=== PATIENT | male | born 1980 | race Caucasian/White ===

== ENCOUNTER 2020-03-06 11:38 | Outpatient (CLI) | payer SELFPAY ==
[2020-03-07 01:59] LABS: SARS-CoV-2 RNA PCR Negative
== END 2020-03-06 11:39 | disposition home or self-care (01) ==
LOC: CHSLAB 11:42
PROVIDERS: PCP Internal Medicine; Visit Provider Internal Medicine
DX: Z20.828 Contact with and (suspected) exposure to other viral communicable diseases (principal)
CPT/HCPCS: 87635; C9803; U0003

== ENCOUNTER 2020-03-13 18:20 | Emergency (ER) | payer SELFPAY ==
[2020-03-13 19:13] VITALS: BP 164/95; PULSE 89; RESP 16; TEMP 36.2; O2SAT 99
--- NOTE | 2020-03-13 19:39 | ED.GENADULT ---
HPI - General Adult General Chief complaint: Wound/Laceration Stated complaint: right hand lac Time Seen by Provider: 03/13/20 19:26 Source: patient Mode of arrival: ambulatory Limitations: no limitations History of Present Illness HPI narrative: Patient presents with chief complaint of laceration to the dorsal aspect of the second digit that he sustained as prior to arrival while dismantling a knife. he states he was able to stop bleeding with compression. He reports still having full range of motion and denying nallely tenderness. He states he is not UTD on tetanus. Related Data Allergies Allergy/AdvReac Type Severity Reaction Status Date / Time No Known Allergies Allergy Verified 03/13/20 19:16 Review of Systems Review of Systems: Narrative: CONSTITUTIONAL: Denies fever, chills, or sweats. EYES: Denies visual changes, redness, or discharge. ENT: Denies rhinorrhea, congestion, sore throat, or otalgia. CARDIOVASCULAR: Denies chest pain, palpitations, or edema. RESPIRATORY: Denies cough or dyspnea. GASTROINTESTINAL: Denies abdominal pain, nausea, vomiting, or diarrhea. GENITOURINARY: Denies dysuria or hematuria. SKIN: Reports laceration denies rash or itching. MUSCULOSKELETAL: Denies back pain, myalgia, or joint pain NEUROLOGIC: Denies headache, numbness, dizziness, or weakness. PSYCHIATRIC: Denies anxiety or depression. PMFSH Social History Social History Gender identity (if verbalized by the patient): Male Exam Narrative: Exam Narrative: GENERAL: Well-appearing, well-nourished, and in no acute distress. HEAD: Normocephalic, atraumatic. EYES: PERRLA and EOMI. NECK: Supple. No adenopathy or masses. No carotid bruits or JVD CHEST: Clear to auscultation. No respiratory distress. No wheezes rales or rhonchi HEART: Regular rate and rhythm. No murmur heard. Normal peripheral pulses. EXTREMITIES: Normal range of motion. No edema. SKIN: 2 cm laceration to the dorsal aspect of right second digit. No active bleeding non gaping. Patient denies nallely tenderness. Patient has full flexion and extension of the digit, no sign of tendon involvement. Warm, dry, no rash. NEURO: No focal deficits. Alert and oriented x3. PSYCH: Normal mood and affect. Course Vital Signs Vital signs: Vital Signs Temperature 97.2 F L 03/13/20 19:13 Pulse Rate 89 03/13/20 19:13 Respiratory Rate 16 03/13/20 19:13 Blood Pressure 164/95 H 03/13/20 19:13 Pulse Oximetry 99 03/13/20 19:13 Temperature 97.2 F L 03/13/20 19:13 Pulse Rate 89 03/13/20 19:13 Respiratory Rate 16 03/13/20 19:13 Blood Pressure 164/95 H 03/13/20 19:13 Pulse Oximetry 99 03/13/20 19:13 Procedures Laceration Laceration 1: Site: upper extremity Side (If applicable): right Size (cm): 2 Description: linear and clean Depth: simple, single layer Local Anesthetic: none ====== Skin Level ====== Skin layer closed with: dermabond ====== Subcutaneous Layer ====== ====== Muscle Layer ====== ====== Tendon Layer ====== Dressing: No complications wound care instructions given Medical Decision Making Vital Signs Vital Signs: Vital Signs Temperature 97.2 F L 03/13/20 19:13 Pulse Rate 89 03/13/20 19:13 Respiratory Rate 16 03/13/20 19:13 Blood Pressure 164/95 H 03/13/20 19:13 Pulse Oximetry 99 03/13/20 19:13 Temperature 97.2 F L 03/13/20 19:13 Pulse Rate 89 03/13/20 19:13 Respiratory Rate 16 03/13/20 19:13 Blood Pressure 164/95 H 03/13/20 19:13 Pulse Oximetry 99 03/13/20 19:13 Discharge Plan Discharge Clinical Impression: Laceration Patient Disposition: Home, Self-Care Condition: Improved Instructions: Antibiotic Form, Laceration (ED) Additional Instructions: Keep area clean. Wash with antibacterial soap. You may wash hands and shower normally but do not soak wound. Follow-up with primary care if any signs of infection
[2020-03-13] MEDS: TETANUS,DIPHTHERIA,AC PERTUSSIS ADULT (0.5 ML) BOOSTRIX IM (19:58)
== END 2020-03-13 20:30 | disposition home or self-care (01) ==
PROVIDERS: Emergency Provider Emergency Medicine; PCP Internal Medicine
DX: S61.210A Laceration without foreign body of right index finger without damage to nail, initial encounter (principal); W26.0XXA Contact with knife, initial encounter; Z23 Encounter for immunization
CPT/HCPCS: 10061; 12001; 90471; 90715; 99282

== ENCOUNTER 2021-09-30 18:50 | Emergency (ER) | payer BC, SELFPAY ==
--- NOTE | ~2021-09-30 | XR_ITS ---
EXAMINATION: XR chest 2V Exam Date/Time: 09/30/2021 19:39 CDT HISTORY: CP Comparison: 04/02/2016. RESULT: Lines, tubes, and devices: None. Lungs and pleura: Clear. Cardiomediastinal silhouette: Stable cardiomediastinal silhouette. Other: No acute osseous or upper abdominal finding. IMPRESSION: No acute cardiopulmonary process. Reviewed, dictated and finalized at location K.
--- NOTE | 2021-09-30 18:52 | ECG_ITS ---
Measurements Intervals [place] Rate: 75 P: 47 [place]: 163 QRS: 21 QRSD: 77 T: 15 QT: 336 QTc: 376 Interpretive Statements SINUS RHYTHM SEPTAL MYOCARDIAL INFARCTION , PROBABLY OLD Electronically Signed On 10-01-2021 10:01:39 CDT by Ariel Miramontes M.D.
[2021-09-30 18:59] VITALS: BP 158/101; PULSE 83; RESP 18; TEMP 36.3; O2SAT 97
--- NOTE | 2021-09-30 19:02 | ED.CHESTPAIN ---
HPI - Chest Pain General Chief Complaint: Chest Pain <Basilia Mcgraw PA-C - Last Filed: 10/01/21 03:22> Stated Complaint: chest pressure <MITCH Akers Last Filed: 10/01/21 03:22> Time Seen by Provider: 09/30/21 18:59 <MITCH Akers Last Filed: 10/01/21 03:22> Source: patient <MITCH Akers Last Filed: 10/01/21 03:22> Mode of arrival: ambulatory <MITCH Akers Last Filed: 10/01/21 03:22> Limitations: no limitations <MITCH Akers Last Filed: 10/01/21 03:22> History of Present Illness HPI narrative: Patient is a 40-year-old male who presents to the ED with report of CP. Patient reports having intermittent left-sided chest pain, radiating into his left-sided jaw and occasionally into his L arm, for the past 3 days. He describes the pain as a pressure and intermittent sharp pain. He states the pain has occurred a couple times a day, and the sharp pain will last a few minutes, but the pressure may last longer, up to an hour. No pain with exertion. No identifiable aggravating factors. Patient also mentions having intermittent shortness of breath with exertion, like walking up stairs. Denies any fever, chills, diaphoresis, congestion, palpitations, BLE pain or edema, cough, abdominal pain, nausea, vomiting, back pain. Patient has a history of hypertension, but denies hypercholesterolemia, diabetes, smoking. He does report family history of cardiac disease on his mom's side and his aunts and uncles, in their 40s. Patient denies any CP currently. Patient states he has had similar CP in the past which was attributed to stress/anxiety. He does note increased stress recently. <MITCH Akers Last Filed: 10/01/21 03:22> Related Data Allergies/Adverse Reactions: Allergies Allergy/AdvReac Type Severity Reaction Status Date / Time No Known Allergies Allergy Verified 03/13/20 19:16 <MITCH Akers Last Filed: 10/01/21 03:22> Review of Systems Review of Systems: CONSTITUTIONAL: Denies fever, chills, diaphoresis. ENT: Denies rhinorrhea, congestion. CARDIOVASCULAR: Reports left-sided CP into L jaw/arm. Denies palpitations or BLE edema. RESPIRATORY: Reports intermittent ROSARIO. Denies cough. GASTROINTESTINAL: Denies abdominal pain, nausea, vomiting, or diarrhea. MUSCULOSKELETAL: Denies back pain, BLE pain, or myalgia. NEUROLOGIC: Denies headache, numbness, or weakness. <Basilia Mcgraw PA-C - Last Filed: 10/01/21 03:22> All systems reviewed & are unremarkable except as noted in HPI and below <Basilia Mcgraw PA-C - Last Filed: 10/01/21 03:22> PMFSH Past Medical History Medical History: Medical History Hypertension <Basilia Mcgraw PA-C - Last Filed: 10/01/21 03:22> Surgical History Surgical History: Surgical History (Updated 09/30/21 @ 19:23 by Basilia Mcgraw PA-C) No pertinent past surgical history <Basilia Mcgraw PA-C - Last Filed: 10/01/21 03:22> Social History Social History: Social History (Updated 09/30/21 @ 19:23 by Basilia Mcgraw PA-C) Smoking status: Never smoker Gender identity (if verbalized by the patient): Male <Basilia Mcgraw PA-C - Last Filed: 10/01/21 03:22> Exam Narrative: GENERAL: Well appearing, well-nourished, non-toxic, in no acute distress. HEAD: Normocephalic, atraumatic. NECK: Supple. No adenopathy, no masses. RESPIRATORY: Airway patent, respirations nonlabored. Clear to auscultation bilaterally, no rales, rhonchi, wheezing. CARDIOVASCULAR: Regular rate and rhythm without murmurs, rubs, or gallops. Peripheral pulses 2+ and equal bilaterally. ABDOMINAL: Soft, nontender, nondistended, no hepatosplenomegaly. Normoactive BS. MUSCULOSKELETAL: Moves all extremities. Strength/ROM intact without gross deformities or TTP. No edema. No calf tenderness. No chest wall tenderness to palpation. SKIN: Warm, dry, normal color. No rashes
[2021-09-30 19:12] VITALS: O2SAT 100
[2021-09-30 19:16] LABS: Basophils Absolute Auto 0.1 K/mm3 (0.0-0.1); Basophils Percent Auto 0.8 % (0.2-1.2); Eosinophils Absolute Auto 0.5 K/mm3 (0-0.3); Hematocrit 43.4 % (42.0-52.0); Hemoglobin 15.1 g/dL (14.0-18.0); Immature Granulocyte Absolute 0.02 K/mm3 (0.00-0.031); Immature Granulocyte Percent A 0.2 % (0-0.5); Lymphocytes Absolute Auto 2.04 K/mm3 (0.9-3.2); Lymphocytes Percent Auto 21.6 % (18.3-44.2); Mean Corpuscular HGB Conc 34.8 g/dl (32-36); Mean Corpuscular Hemoglobin 29.9 pg (26-34); Mean Corpuscular Volume 85.9 fl (80-100); Mean Platelet Volume 10.5 fl (7.4-10.4); Monocytes Absolute Auto 0.9 K/mm3 (0.1-0.6); Neutrophils Percent Auto 63.4 % (45.5-73.1); Platelet Count Result 295 k/mm3 (150-375); Red Blood Count 5.05 M/mm3 (4.6-6.20); Red Cell Distribution Width 12.8 % (11.5-14.5); White Blood Count 9.4 K/mm3 (4.5-10.0)
[2021-09-30 19:27] LABS: Alanine Aminotransferase 47 U/L (6-50); Albumin Level 4.7 g/dL (3.5-5.1); Alkaline Phosphatase 76 U/L (38-126); Anion Gap 6 mmol/L (8-16); Aspartate Amino Transferase 31 U/L (17-59); Bilirubin,Total 0.2 mg/dL (0.2-1.3); Blood Urea Nitrogen 14 mg/dL (9-20); Carbon Dioxide 28 mmol/L (22-30); Chloride 104 mmol/L (98-107); Estimated CRCL calculation 105 ml/min; Estimated Glomerular Filt Rate > 60; Glucose 103 mg/dL (65-110); Lipase 50 U/L (23-300); Potassium 4.2 mmol/L (3.4-5.0); Sodium 138 mmol/L (137-145)
[2021-09-30 19:31] LABS: Prothrombin Time 12.5 Seconds (11.1-14.7)
[2021-09-30 19:46] LABS: Troponin I < 0.012 ng/mL (0.000-0.034)
[2021-09-30 20:36] VITALS: BP 125/75; PULSE 73; RESP 16; O2SAT 97
[2021-09-30 21:58] LABS: Troponin I < 0.012 ng/mL (0.000-0.034)
[2021-09-30 23:07] VITALS: BP 130/90; PULSE 64; RESP 16; O2SAT 97
== END 2021-09-30 23:07 | disposition home or self-care (01) ==
PROVIDERS: Physician Assistant; Emergency Provider Emergency Medicine; PCP Internal Medicine
DX: R07.89 Other chest pain (principal); I10 Essential (primary) hypertension; R94.31 Abnormal electrocardiogram [ECG] [EKG]
CPT/HCPCS: 36415; 71046; 80053; 83690; 84484; 85025; 85610; 85730; 93005; 99284

== ENCOUNTER 2025-02-23 10:48 | Outpatient (CLI) | payer OTHER, SELFPAY ==
--- NOTE | 2025-02-23 11:08 | ECG_ITS ---
Test Date: 2025-02-23 11:16:15 Measurements Intervals [place] Rate: 59 P: 40 [place]: 152 QRS: 51 QRSD: 89 T: 11 QT: 385 QTc: 383 Interpretive Statements SINUS BRADYCARDIA No previous ECG available for comparison Electronically Signed On 02-23-2025 12:34:46 AUTO CLUB TRAVEL COUNSELOR by Jorge Sy M.D.
[2025-02-23 11:16] LABS: Hematocrit 43.0 % (40.0-54.0); Hemoglobin 14.7 g/dL (14.0-18.0); Mean Corpuscular HGB Conc 34.2 g/dL (32-36); Mean Corpuscular Hemoglobin 29.3 pg (27.0-31.0); Mean Corpuscular Volume 85.8 fL (78.0-102.0); Platelet Count Result 297 K/mm3 (150-420); Red Blood Count 5.01 M/mm3 (4.70-6.10); White Blood Count 11.2 K/mm3 (4.8-10.8)
[2025-02-23 11:25] LABS: Add Urine Microscopic? NO; Appearance Urine Clear (Clear); Glucose Urine UA Negative (Negative); Leukocyte Esterase Ur Negative (Negative); Nitrate Urine Negative (Negative); Specific Grav Ur <= 1.005 (1.010-1.020)
[2025-02-23 11:36] LABS: Alanine Aminotransferase 50 U/L (6-50); Albumin Level 4.8 g/dL (3.5-5.1); Alkaline Phosphatase 71 U/L (38-126); Anion Gap 10 mmol/L (4-12); Aspartate Amino Transferase 38 U/L (17-59); Blood Urea Nitrogen 10 mg/dL (9-20); Calcium 9.3 mg/dL (8.4-10.2); Carbon Dioxide 30 mmol/L (22-30); Chloride 103 mmol/L (98-107); Cholesterol 200 mg/dL (0-200); Estimated Glomerular Filt Rate > 60; Glucose 102 mg/dL (65-110); HDL Direct 52 mg/dL; Osmolality Calculated 295 mOsm/kg (285-295); Potassium 4.7 mmol/L (3.4-5.0); Sodium 143 mmol/L (137-145); Total Protein 7.5 g/dL (6.3-8.2); Triglycerides 147 mg/dL (<150)
--- OUTSIDE RECORDS SUMMARY | 2025-02-23 11:52 | XMS_ITS | Encounter Summary ---
Author Organization [facility] Healthcare Address [address] [place] [address] Care Team Providers Care Slasher Tender Name Role Phone Jovan Buckley MD Primary Care Provider [phone] Encounter Details Date Type Department Care Team (Late st Contact Info) Description 02/14/2025 Results Follow-Up [facility] Con[facility]ient Care at [address] [address] Osito Chun NP [address] [place] [address] [address] [place], [place] [id number] Throat culture Throat Social History Tobacco Use Types Packs/Day Years Used Date Smoking Tobacco: Never Sex and Gender Information Value Date Recorded Sex Assigned at Not on file Legal Sex Male 7:10 PM CANS VACUUM TESTER Gender Identity Not on file Sexual Orientation Not on file documented as of this encounter Plan of Treatment Not on file documented as of this encounter Visit Diagnoses Not on filedocumented in this encounter Care Teams Slasher Tender Relationship Specialty Start Date End Date Jovan Buckley MD PCP - General Internal Medicine 11/07/21 documented as of this encounter
--- OUTSIDE RECORDS SUMMARY | 2025-02-23 11:52 | XMS_ITS | Clinical Summary ---
Author Organization [facility] [address] Address [address] [place] [address] Care Team Providers Care Metal Door Assembler Name Role Phone Jovan Buckley MD Primary Care Provider [phone] Allergies No known active allergies Medications propranolol LA (INDERAL LA) 60 mg 24 hr capsule Take 1 capsule (60 mg total) by mouth daily 11/22/2021 Active Active Problems Problem Noted Date Diagnosed Date Atypical chest pain 12/19/2021 Encounters Date Type Department Care Team Description 02/14/2025 Results Follow-Up [facility] Con[facility]ient Care at [address] [address] Osito Chun NP Throat culture Throat 02/13/2025 7:53 PM COMIC WRITER - 02/13/2025 11:59 PM COMIC WRITER Hospital Encounter [address] [address] Acute nasopharyngitis Discharge Disposition: Discharge to home or self care 02/13/2025 6:00 PM COMIC WRITER Office Visit [facility] at [address] [address] Osito Chun NP Acute nasopharyngitis (Primary Dx); Elevated blood pressure reading in office with diagnosis of hypertension from Last 3 Months Medical History Medical History Date Comments Hypertension Kidney stones Family History Medical History Relation Name Comments Diabetes Other Heart disease Other Hyperlipidemia Other Hypertension Other Relation Name Status Comments Other Social History Tobacco Use Types Packs/Day Years Used Date Smoking Tobacco: Never Tobacco Cessation:Counseling Given: Not Answered Sex and Gender Information Value Date Recorded Sex Assigned at Not on file Legal Sex Male 7:10 PM COMIC WRITER Gender Identity Not on file Sexual Orientation Not on file Last Filed Vital Signs Vital Sign Reading Time Taken Comments Blood Pressure 178/118 02/13/2025 6:18 PM COMIC WRITER Pulse 73 02/13/2025 6:11 PM COMIC WRITER Temperature 37.2 C (98.9 F) 02/13/2025 6:11 PM COMIC WRITER Respiratory Rate 18 02/13/2025 6:11 PM COMIC WRITER Oxygen Saturation 99% 02/13/2025 6:11 PM COMIC WRITER Inhaled Oxygen Concentration - - Weight 95.9 kg (211 lb 6.4 oz) 02/13/2025 6:11 P M COMIC WRITER Height 170.2 cm (5' 7.01) 02/13/2025 6:11 PM CS T Body Mass Index 33.1 02/13/2025 6:11 PM COMIC WRITER Plan of Treatment Health Maintenance Due Date Last Done Comments Depression Screening 1981 Hepatitis C Screening 1981 Varicella Vaccines (1 of 2 - 13+ 2-dose series) 1994 Hepatitis B Screening 10/25/1999 Regular Well Visit/Exam 18-64 10/25/1999 HPV Vaccines (1 - 3-dose SCD M series) 2008 Influenza Vaccine (#1) 2024 DTaP/Tdap/Td Vaccine (3 - Td or Tdap) 03/13/2030 03/13/2020, 02/11/2017 Pneumococcal vaccine <65 Aged Out No longer eligible based on patient's age to complete this topic Procedures Procedure Name Priority Date/Time Associated Diagnosis Comments THROAT CULTURE Routine 02/13/2025 7:53 PM COMIC WRITER Acute nasopharyngitis POCT RAPID STREP Routine 02/13/2025 6:42 PM COMIC WRITER Acute nasopharyngitis from Last 3 Months Results * Throat culture Throat (02/13/2025 7:53 PM COMIC WRITER) Report Final Report: No growth of pathogens. Comment:Testing performed by : [facility], [address] [facility] [place] [address] Throat 02/13/2025 7:53 PM COMIC WRITER 02/13/2025 11:53 PM COMIC WRITER Narrative SREEKANTH ANNIKA - 02/14/2025 7:32 PM COMIC WRITER Testing performed by [facility] Microbiology Laboratory ([phone]). Osito Chun NP LAB MICROBIOLOGY - GENERAL ORDBc JAY Final Result SREEKANTH [address] Department [place] [address] * POCT rapid strep A (02/13/2025 6:42 PM COMIC WRITER) Rapid Strep A, POC Negative Negative Swab 02/13/2025 6:42 PM COMIC WRITER Osito Chun NP POINT OF CARE TEST ORDERABLES F inal Result from Last 3 Months Insurance [employer] OOS [employer] OPEN ACCESS Care Teams Metal Door Assembler Relationship Specialty Start Date End Date Jovan Buckley MD PCP - General Internal Medicine 11/07/21
--- OUTSIDE RECORDS SUMMARY | 2025-02-23 11:53 | XMS_ITS | Clinical Summary ---
Author Organization [facility] Address [address] [place] [address] Care Team Providers Care Salesperson New Cars Name Role Phone Jovan Buckley MD Primary Care Provider [phone] Source Comments [facility],non-owned Affiliates and Associated Physician Practices is amultiple site organization consisting of ambulatory clinics and hospital sitesin [place], [place], [place] and [place]. This disclosure is being madepursuant to the Care Everywhere program and may not contain all information available regarding this patient. Last updated 18.[facility] Allergies No known active allergies Medications * Be aware that medications may not be up to date on this document. Alwaysverify current medications with the patient. benzonatate (TESSALON) 200 MG capsule Take 1 Cap by mouth 3 times daily as needed for Cough 30 Cap 03/21/2016 Active Immunizations Immunization Administration Dates Next Due TDAP (7yrs+) 02/11/2017 Social History Tobacco Use Types Packs/Day Years Used Date Smoking Tobacco: Never Sex and Gender Information Value Date Recorded Sex Assigned at Not on file Legal Sex Male 11:32 AM PROJECT CONTROLS SPECIALIST Gender Identity Not on file Sexual Orientation Not on file Last Filed Vital Signs Vital Sign Reading Time Taken Comments Blood Pressure 124/86 03/21/2016 11:43 AM PROJECT CONTROLS SPECIALIST Pulse 72 03/21/2016 11:43 AM PROJECT CONTROLS SPECIALIST Temperature 37.1 C (98.7 F) 03/21/2016 11:43 AM PROJECT CONTROLS SPECIALIST Respiratory Rate 16 03/21/2016 11:43 AM PROJECT CONTROLS SPECIALIST Oxygen Saturation 98% 03/21/2016 11:43 AM PROJECT CONTROLS SPECIALIST Inhaled Oxygen Concentration - - Weight 86.2 kg (190 lb) 03/21/2016 11:43 AM PROJECT CONTROLS SPECIALIST Height 170.2 cm (5' 7) 03/21/2016 11:43 AM PROJECT CONTROLS SPECIALIST Body Mass Index 29.76 03/21/2016 11:43 AM PROJECT CONTROLS SPECIALIST Plan of Treatment Health Maintenance Due Date Last Done Comments LIPID TESTING 1981 HIV SCREENING 1996 HEPATITIS C SCREENING 10/20/1999 HEPATITIS B VACCINE (1 of 3 - 19+ 3-dose series) 2000 HPV VACCINE (1 - 3-dose SCDM series) 2008 DEPRESSION SCREENING 04/13/2024 COVID-19 VACCINE ( - 2023-2 5 season) 2024 INFLUENZA VACCINE (#1) 2024 DTAP/TDAP/TD VACCINES (2 - T d or Tdap) 02/11/2027 02/11/2017 ZOSTER VACCINE (1 of 2) 10/25/2031 HIB VACCINE Aged Out No longer eligi ble based on patient's age to complete this topic MENINGOCOCCAL (Group B) VACC INE SHARED DECISION-MAKING Aged Out No longer eligibl e based on patient's age to complete this topic MENINGOCOCCAL GROUPS A/C/Y/W VACCINE Aged Out No longer eligible b ased on patient's age to complete this topic PNEUMOCOCCAL VACCINE Aged Out No long er eligible based on patient's age to complete this topic Insurance ANTHEM Care Teams Salesperson New Cars Relationship Specialty Start Date End Date Jovan Buckley MD [address] [place] [address] PCP - General Internal Medicine 03/21/16
[2025-02-23 12:06] LABS: Thyroid Stimulating Hormone 1.030 uIU/mL (0.465-4.680)
[2025-02-24 12:08] LABS: LH 3.4 mIU/mL (1.7-8.6)
[2025-02-25 14:08] LABS: Free Testosterone (Direct) 8.1 pg/mL (6.8-21.5)
[2025-02-28 13:36] LABS: Bilirubin,Total 0.2 mg/dL (0.2-1.3)
== END 2025-02-23 10:49 | disposition home or self-care (01) ==
LOC: CHSLAB 10:52
PROVIDERS: PCP Internal Medicine; Visit Provider Internal Medicine
DX: Z00.00 Encounter for general adult medical examination without abnormal findings (principal); I10 Essential (primary) hypertension; R53.83 Other fatigue; R00.1 Bradycardia, unspecified
CPT/HCPCS: 36415; 80053; 80061; 81003; 83002; 84402; 84403; 84443; 85027; 93005

== ENCOUNTER 2025-02-28 04:03 | Emergency (ER) | payer OTHER, SELFPAY ==
[2025-02-28] VITALS (8 sets, daily range): BP systolic 141–153; BP diastolic 87–99; PULSE 63–72; RESP 10–18; TEMP 36.8; O2SAT 98–100
--- NOTE | ~2025-02-28 | XR_ITS ---
Examination: XR chest 2V Clinical History: SYNCOPE Comparison: 09/30/2021 Technique: PA and Lateral Findings: Cardiomediastinal silhouette normal size and configuration. Lungs clear. Calcified mediastinal nodes. No acute bony abnormality. IMPRESSION: 1. No acute cardiopulmonary findings. Reviewed, dictated and finalized at location [facility] [employer]
--- OUTSIDE RECORDS SUMMARY | 2025-02-28 04:06 | XMS_ITS | Clinical Summary ---
Author Organization [facility] [address] Address [address] [place] [address] Care Team Providers Care Account Auditor Name Role Phone Jovan Buckley MD Primary Care Provider [phone] Allergies No known active allergies Medications propranolol LA (INDERAL LA) 60 mg 24 hr capsule Take 1 capsule (60 mg total) by mouth daily 11/22/2021 Active Active Problems Problem Noted Date Diagnosed Date Atypical chest pain 12/19/2021 Encounters Date Type Department Care Team Description 02/14/2025 Results Follow-Up [facility] Convenient Care at [address] [address] Osito Chun NP Throat culture Throat 02/13/2025 7:53 PM DOUBLE BACKER - 02/13/2025 11:59 PM DOUBLE BACKER Hospital Encounter [address] [address] Acute nasopharyngitis Discharge Disposition: Discharge to home or self care 02/13/2025 6:00 PM DOUBLE BACKER Office Visit [facility] at [address] [address] Osito Chun NP Acute nasopharyngitis [...] on file Legal Sex Male 7:10 PM DOUBLE BACKER Gender Identity Not on file Sexual Orientation Not on file Last Filed Vital Signs Vital Sign Reading Time Taken Comments Blood Pressure 178/118 02/13/2025 6:18 PM DOUBLE BACKER Pulse 73 02/13/2025 6:11 PM DOUBLE BACKER Temperature 37.2 C (98.9 F) 02/13/2025 6:11 PM DOUBLE BACKER Respiratory Rate 18 02/13/2025 6:11 PM DOUBLE BACKER Oxygen Saturation 99% 02/13/2025 6:11 PM DOUBLE BACKER Inhaled Oxygen Concentration - - Weight 95.9 kg (211 lb 6.4 oz) 02/13/2025 6:11 P M DOUBLE BACKER Height 170.2 cm (5' 7.01) 02/13/2025 6:11 PM CS T Body Mass Index 33.1 02/13/2025 6:11 PM DOUBLE BACKER Plan of Treatment Health Maintenance Due Date [...] Comments THROAT CULTURE Routine 02/13/2025 7:53 PM DOUBLE BACKER Acute nasopharyngitis POCT RAPID STREP Routine 02/13/2025 6:42 PM DOUBLE BACKER Acute nasopharyngitis from Last 3 Months Results * Throat culture Throat (02/13/2025 7:53 PM DOUBLE BACKER) Report Final Report: No growth of pathogens. Comment:Testing performed by : [facility], [address] [place]., [address] Throat 02/13/2025 7:53 PM DOUBLE BACKER 02/13/2025 11:53 PM DOUBLE BACKER Narrative SREEKANTH ANNIKA - 02/14/2025 7:32 PM DOUBLE BACKER Testing performed by [facility] Microbiology Laboratory ([phone]). Osito Chun NP LAB MICROBIOLOGY - GENERAL ORDBc JAY Final Result SREEKAN[facility] [address] Department [place] [address] * POCT rapid strep A (02/13/2025 6:42 PM DOUBLE BACKER) Rapid Strep A, POC Negative Negative Swab 02/13/2025 6:42 PM DOUBLE BACKER Osito Chun NP POINT OF CARE TEST ORDERABLES F inal Result from Last 3 Months Insurance [employer] OOS I Had Cancer OPEN ACCESS Care Teams Account Auditor Relationship Specialty Start Date End Date Jovan Buckley MD PCP - General Internal Medicine 11/07/21
--- OUTSIDE RECORDS SUMMARY | 2025-02-28 04:06 | XMS_ITS | Clinical Summary ---
Author Organization [facility] Address [address] [place] [address] Care Team Providers Care Lead Simulation Modeling Engineer Name Role Phone Jovan Buckley MD Primary Care Provider [phone] Source Comments [facility],non-owned Affiliates and Associated Physician Practices is amultiple site organization consisting of ambulatory clinics and hospital sitesin [place], [place], [place] and [place]. This disclosure is being madepursuant to the Care Everywhere program and may not contain all information available regarding this patient. Last updated 18.[facility] Allergies No known active allergies Medications * [...] on file Legal Sex Male 11:32 AM COMMUNITY RELATIONS ASSISTANT Gender Identity Not on file Sexual Orientation Not on file Last Filed Vital Signs Vital Sign Reading Time Taken Comments Blood Pressure 124/86 03/21/2016 11:43 AM COMMUNITY RELATIONS ASSISTANT Pulse 72 03/21/2016 11:43 AM COMMUNITY RELATIONS ASSISTANT Temperature 37.1 C (98.7 F) 03/21/2016 11:43 AM COMMUNITY RELATIONS ASSISTANT Respiratory Rate 16 03/21/2016 11:43 AM COMMUNITY RELATIONS ASSISTANT Oxygen Saturation 98% 03/21/2016 11:43 AM COMMUNITY RELATIONS ASSISTANT Inhaled Oxygen Concentration - - Weight 86.2 kg (190 lb) 03/21/2016 11:43 AM COMMUNITY RELATIONS ASSISTANT Height 170.2 cm (5' 7) 03/21/2016 11:43 AM COMMUNITY RELATIONS ASSISTANT Body Mass Index 29.76 03/21/2016 11:43 AM COMMUNITY RELATIONS ASSISTANT Plan of Treatment Health Maintenance Due Date [...] complete this topic Insurance ANTHEM Care Teams Lead Simulation Modeling Engineer Relationship Specialty Start Date End Date Jovan Buckley MD [address] [place] [address] PCP - General Internal Medicine 03/21/16
--- NOTE | 2025-02-28 04:10 | ECG_ITS ---
Test Date: 2025-02-28 04:16:51 Measurements Intervals [place] Rate: 69 P: 37 [place]: 163 QRS: 17 QRSD: 96 T: 11 QT: 381 QTc: 409 Interpretive Statements SINUS RHYTHM WITH SINUS ARRHYTHMIA NONSPECIFIC T-WAVE ABNORMALITY ABNORMAL ECG Compared to ECG 02/23/2025 11:16:15 T-wave abnormality now present Sinus bradycardia no longer present Electronically Signed On 02-28-2025 09:03:32 SMALL ELECTRIC ENGINE TECHNICIAN by Perico Etienne M.D.
[2025-02-28 04:34] LABS: Hematocrit 43.1 % (42.0-52.0); Hemoglobin 15.1 g/dL (14.0-18.0); Immature Granulocyte Percent A 0.3 % (0-0.5); Lymphocytes Absolute Auto 3.31 K/mm3 (0.9-3.2); Mean Corpuscular HGB Conc 35.0 g/dl (32-36); Mean Corpuscular Hemoglobin 29.8 pg (26-34); Mean Corpuscular Volume 85.2 fl (80-100); Nucleated Red Blood Cells Absolute Auto 0.000 K/mm3 (0.0-0.012); Nucleated Red Blood Cells Perc 0.0 % (0.0-0.2); Platelet Count Result 277 k/mm3 (150-375); Red Blood Count 5.06 M/mm3 (4.6-6.20); White Blood Count 12.1 K/mm3 (4.5-10.0)
[2025-02-28 04:48] LABS: Alanine Aminotransferase 40 U/L (6-50); Albumin Level 4.8 g/dL (3.5-5.1); Alkaline Phosphatase 69 U/L (38-126); Anion Gap 10 mmol/L (4-12); Aspartate Amino Transferase 32 U/L (17-59); Bilirubin,Total 0.6 mg/dL (0.2-1.3); Blood Urea Nitrogen 21 mg/dL (9-20); Calcium 9.2 mg/dL (8.4-10.2); Carbon Dioxide 26 mmol/L (22-30); Chloride 103 mmol/L (98-107); Estimated CRCL calculation 83 ml/min; Estimated Glomerular Filt Rate > 60; Glucose 99 mg/dL (65-110); Potassium 3.6 mmol/L (3.4-5.0); Sodium 139 mmol/L (137-145); Total Protein 8.1 g/dL (6.3-8.2)
--- NOTE | 2025-02-28 05:50 | ED.GENADULT ---
HPI - General Adult General Chief complaint: Syncope Stated complaint: syncope Time Seen by Provider: 02/28/25 05:25 History of Present Illness HPI narrative: patient is a 44-year-old gentleman who presents emergency department with chief complaint of syncope. Patient reports that he started a new blood pressure medicine reports that he took a THC gummy and then went to the bathroom and was having a bowel movement while he was straining on the toilet he passed out the patient reports that he struck the right side of his head reports that he is unsure how long he was out of the patient reports that now he feels much better Related Data Home Medications ?Medication ?Instructions ?Recorded ?Confirmed ?Last Taken ?Type propranolol 60 mg capsule,24 60 mg PO DAILY 09/25/23 11/24/23 Unknown History hr,extended release Allergies Allergy/AdvReac Type Severity Reaction Status Date / Time No Known Allergies Allergy Verified 02/28/25 04:04 Review of Systems Review of Systems: A 10 system review of systems was completed on the patient and is negative except for what is stated in the HPI. Nursing and ancillary documentation was reviewed. [facility] Past Medical History Medical History Hypertension Surgical History Surgical History No pertinent past surgical history Social History Social History Smoking status: Never smoker Alcohol intake: current Alcohol use details: Social Substance use: never Substance use type: does not use Gender identity (if verbalized by the patient): Male Exam Narrative: GENERAL: Well-appearing, well-nourished, and in no acute distress. HEAD: Normocephalic, head there is slight redness to the right side of the face bruising present. EYES: PERRLA and EOMI. ENT: Nares clear, no rhinorrhea or epistaxis. Mucous membranes moist. NECK: Supple. CHEST: Clear to auscultation. No respiratory distress. HEART: Regular rate and rhythm. No murmur heard. Normal peripheral pulses. ABDOMEN: Soft, nontender, nondistended, normal active bowel sounds. EXTREMITIES: Normal range of motion. No edema. SKIN: Warm, dry, no rash. NEURO: No focal deficits. Alert and oriented x3. PSYCH: Normal mood and affect. Course Vital Signs Vital signs: Vital Signs Pulse Rate 69 02/28/25 04:14 Respiratory Rate 18 02/28/25 04:14 Blood Pressure 153/93 H 02/28/25 04:14 Pulse Oximetry 100 02/28/25 04:14 Temperature 36.8 C 02/28/25 04:56 Pulse Rate 72 02/28/25 05:14 Respiratory Rate 18 02/28/25 04:14 Blood Pressure 150/96 H 02/28/25 05:14 Pulse Oximetry 100 02/28/25 04:14 Medical Decision Making MDM Narrative Medical decision making narrative: differential diagnosis includes vasovagal syncope, dysrhythmia, electrolyte abnormality dehydration laboratory studies were obtained on the patient showed normal CBC CMP showed no significant abnormalities. Chest x-ray showed no focal infiltrate EKG showed no acute ischemic changes no dysrhythmia Vital Signs Vital Signs: Vital Signs Pulse Rate 69 02/28/25 04:14 Respiratory Rate 18 02/28/25 04:14 Blood Pressure 153/93 H 02/28/25 04:14 Pulse Oximetry 100 02/28/25 04:14 Temperature 36.8 C 02/28/25 04:56 Pulse Rate 72 02/28/25 05:14 Respiratory Rate 18 02/28/25 04:14 Blood Pressure 150/96 H 02/28/25 05:14 Pulse Oximetry 100 02/28/25 04:14 Lab Data 02/28/25 04:28 02/28/25 04:28 Labs: Lab Results 02/28/25 Range/Units 04:28 WBC 12.1 H (4.5-10.0) K/mm3 RBC 5.06 (4.6-6.20) M/mm3 Hgb 15.1 (14.0-18.0) g/dL Hct 43.1 (42.0-52.0) % MCV 85.2 (80-100) fl MCH 29.8 (26-34) pg MCHC 35.0 (32-36) g/dl RDW 12.9 (11.5-14.5) % Plt Count 277 (150-375) k/mm3 MPV 11.2 H (7.4-10.4) fl Immature Gran % (Auto) 0.3 (0-0.5) % Neut % (Auto) 58.3 (45.5-73.1) % Lymph % (Auto) 27.4 (18.3-44.2) % [place] % (Auto) 9.7 H (2.6-8.5) % Eos % (Auto) 3.7 (0-4.4) % Baso % (Auto) 0.6 (0.2-1.2) % Lymph # (Auto) 3.31 H (0.9-3.2) K/mm3 [place] # (Auto) 1.2 H (0.1-0.6) K/mm3 Eos # (Auto) 0.5 H (0-0.3) K/mm3 Baso # (Auto) 0.1 (0.0-0.1) K/mm3 Abs Immat Gran (auto) 0.04 H (0.00-0.031) K/mm3 Absolute Neuts (auto) 7.0 H (1.3-6.7) K/mm3 Absolute Nucleated RBC 0.000 (0.0-0.012) K/mm3 Nucleated RBC % 0.0 (0.0-0.2) % Sodium 139 (137-145) mmol/L Potassium 3.6 (3.4-5.0) mmol/L Chloride 103 (98-107) mmol/L Carbon Dioxide 26 (22-30) mmol/L Anion Gap 10 (4-12) mmol/L BUN 21 H D (9-20) mg/dL Creatinine 1.12 (0.7-1.3) mg/dL Estim Creat Clear Calc 83 ml/min Estimated GFR > 60 (59 - ) Glucose 99 (65-110) mg/dL Calcium 9.2 (8.4-10.2) mg/dL Total Bilirubin 0.6 (0.2-1.3) mg/dL AST 32 (17-59) U/L ALT 40 (6-50) U/L Alkaline Phosphatase 69 (38-126) U/L Total Protein 8.1 (6.3-8.2) g/dL Albumin 4.8 (3.5-5.1) g/dL Discharge Plan Discharge Clinical Impression: Vasovagal syncope Patient Disposition: Home Condition: Stable Instructions: Antibiotic Form, Syncope (ED) Patient Language: Faroese Prescriptions: No Action propranolol 60 mg capsule,extended release 24 hr 60 mg PO DAILY Follow-up/Referrals: Jovan Buckley MD [Primary Care Provider, Internal Medicine] Time of Disposition: 05:56
== END 2025-02-28 06:10 | disposition home or self-care (01) ==
PROVIDERS: Emergency Provider Emergency Medicine; PCP Internal Medicine
DX: R55 Syncope and collapse (principal); R94.31 Abnormal electrocardiogram [ECG] [EKG]; I10 Essential (primary) hypertension
CPT/HCPCS: 36415; 71046; 80053; 85025; 93005; 99283